=== PATIENT | male | born 1995 | race Hispanic/Latino ===

== ENCOUNTER 2016-08-04 14:39 | Emergency (ER) | payer SELFPAY ==
[~2016-08-04] VITALS: Ht 152.4 cm; Wt 54.9 kg
[2016-08-04 14:58] VITALS: BP 136/86; PULSE 80; RESP 18; O2SAT 98
--- NOTE | 2016-08-04 15:40 | ED.REPORT ---
HPI-Rash / Abscess Date of Service August 04, 2016 ED Provider: Doc,Ed MD History of Present Illness: Intensely itchy rash present in interdigital bilateral hands, upper inner thighs, waistline for months. Brother was treated for scabies effectively months ago. Itchy only at night. He is unsure if the lesions come and go in general. No history of other skin disease Nursing Notes Stated Complaint: UPPER BODY ITCHING Chief Complaint: Skin Rash/Abscess Nursing Notes Reviewed: Yes Allergies: Coded Allergies: No Known Allergies (Verified Allergy, Unknown, 08/04/16) Scheduled Permethrin (Permethrin Cream) 60 Gm Cream..g. 1 APPLIC TP UD Follow package instructions General Time Seen by MD: 15:24 Chief Complaint Rash (hands, waist, upper inner thighs) Hx Obtained From: Patient Arrived By: Walk-in Onset Occurred: More than a week ago... (3 months) Symptom Duration: Since onset Location: : Generalized Quality: Itching Severity: Current: No pain currently Severity: Maximum: No pain Associated with: Denies Fever, Denies Nausea, Denies Vomiting Pertinent Negative: Pt denies other symptoms Similar Sx Previous: Yes Past Medical History Past Medical History Notes: denies scabies contact Past Medical History none reported Past Surgical History none reported Smoking History Never Smoker Social History Alcohol Use: Denies alcohol use Drug Use: Denies drug use Review of Systems Review of Systems Note: intensly itchy hands, upper inner thighs, waist, chest/abd Basic Review of Systems : No dysuria, No frequency Hematologic: No bleeding, No bruising Neurologic: NL mental status, No weakness, No numbness Psychiatric: Normal thought content Constitutional: Denies: Chills, Fatigue, Fever Respiratory: Denies: Dyspnea on exertion Cardiovascular: Denies: Chest pain GI: Denies: Abdominal pain, Nausea, Vomiting Allergy / Immune: Reports: Itching Complete sys rev & neg: except as marked. Male: Denies Dysuria Physical Exam Initial Vital Signs Vital Signs (First) Date Time Temp Pulse Resp B/P Pulse Ox O2 Delivery O2 Flow Rate FiO2 08/04/16 14:58 37.7 80 18 136/86 98 Room Air Initial VS: Reviewed, Vital signs normal Head / Eyes: Atraumatic Respiratory: Breath sounds normal, Clear to auscultation, No respiratory distress Cardiovascular: Regular rate & rhythm, Heart sounds normal, Intact distal pulses Neurologic: Alert, Oriented, Nonfocal Psychiatric: Mood/affect normal, Behavior normal, Normal thought content Skin: Atraumatic, Warm, Dry, Intact Color / Condition: Positive: Rash present Rash / Lesion Notes: fine erythematous papules present in interdigital areas bilat hands. no tunneling. hands appear dry. no lesions noted on chest, few erythematous, small papules on upper legs bilat Rash / Lesion Location: Positive: Generalized, Hand L, Hand R, Leg L, Leg R Rash / Lesion Pattern: Positive: Papular, Scabbing Re-Eval/Medical Decision Med Decision/Clinical Course history and PE consistant with scabies. family member with scabies. will treat, discussed home cleaning. differential is eczema, followup if rash not resolved after cream use. Discharge & Departure Shift Change Sign-Out Response to Therapy: Improved Impression: Primary Impression: Scabies Disposition: Home Discharge Condition All VS Reviewed: Yes Condition: Stable Patient Instructions: Scabies (GEN) Additional Instructions: Apply cream from neck to toes and leave on overnight. Then shower off in the morning. Wash sheets and all towels in hot water. Take Benadryl for itching. Follow-up with your doctor if symptoms do not resolve after cream is used Referrals: NOPCP (PCP) Lloyd Lopez MD EDSupervising Provider for APC: Marlon Diaz MD, Linnea K ARNP August 04, 2016 15:40
[2016-08-04] MEDS ORDERED: PERM60CR4 TP (15:54)
[2016-08-04 16:02] VITALS: BP 136/86; PULSE 80; RESP 18; O2SAT 98
== END 2016-08-04 16:03 | disposition home or self-care (01) ==
LOC: SED 14:39
DX: B86 Scabies (principal)